=== PATIENT | male | born 1950 | race Caucasian/White ===

== ENCOUNTER 2016-10-23 01:12 | Emergency (ER) | payer OTHER ==
[~2016-10-23] VITALS: Ht 190.5 cm; Wt 136.1 kg
[2016-10-23 02:38] VITALS: BP 150/81
== END 2016-10-23 02:47 | disposition home or self-care (01) ==
LOC: ER 01:12
DX: H61.21 Impacted cerumen, right ear (principal)
CPT/HCPCS: 69209